=== PATIENT | female | born 1980 | race Caucasian/White ===

== ENCOUNTER 2021-06-21 19:05 | Emergency (ER) | payer SELFPAY ==
[~2021-06-21] VITALS: Ht 175.3 cm; Wt 90.7 kg
[2021-06-21] MEDS ORDERED: Prednisone20 MG PO (22:16)
== END 2021-06-21 22:30 | disposition home or self-care (01) ==
LOC: ER 19:05
DX: M48.02 Spinal stenosis, cervical region (principal); F17.200 Nicotine dependence, unspecified, uncomplicated; Z88.1 Allergy status to other antibiotic agents; Z91.018 Allergy to other foods
CPT/HCPCS: 72125; 99284-25; A9270; J7512

== ENCOUNTER → 2024-07-23 | Outpatient (CLI) | payer OTHER ==
[~2024-07-23] MED LIST: Prednisone20 MG PO
[2024-07-31 07:49] LABS: HPV HIGH RISK BY TMA Not Detected; HPV SOURCE Cervical
== END | disposition home or self-care (01) ==
LOC: LAB 11:41 → LAB SHORT 11:41
PROVIDERS: Physician Assistant
DX: Z01.419 Encounter for gynecological examination (general) (routine) without abnormal findings (principal)
CPT/HCPCS: 87624; G0123